=== PATIENT | female | born 1975 | race Caucasian/White ===

== ENCOUNTER 2023-05-17 13:21 | Outpatient (REF) | payer MEDICARE, MEDICAID, SELFPAY | END 2023-05-17 13:22 | disposition home or self-care (01) | LOC: HO.LNP 13:21 | PROVIDERS: PCP Family Medicine; Visit Provider Surgery | DX: Z13.89 Encounter for screening for other disorder (principal) | CPT/HCPCS: 87070; 87077; 87186; 87205 ==